=== PATIENT | male | born 1965 | race Caucasian/White ===

== ENCOUNTER → 2018-10-08 | Outpatient (CLI) | payer OTHER ==
[~2018-10-08] MED LIST: HYDROCODONE-AP1 EAC6 PO; IBUPROFEN 800800 M1 PO; KEFLEX500 MG PO; NORCO 5-325 TA1 EACH PO; ZOFRAN ODT4 MG PO
== END ==
LOC: M.ULTRA 11:29
DX: R22.1 Localized swelling, mass and lump, neck (principal)

== ENCOUNTER → 2018-10-18 | Outpatient (CLI) | payer OTHER | LOC: M.CT 09:04 | DX: R22.1 Localized swelling, mass and lump, neck (principal); R59.9 Enlarged lymph nodes, unspecified; Z88.8 Allergy status to other drugs, medicaments and biological substances ==

== ENCOUNTER → 2018-10-30 | Outpatient (CLI) | payer OTHER ==
[2018-10-30 12:21] LABS: ABSOLUTE BASOPHILS 0.1 thou/uL (0.0-0.2); ABSOLUTE EOSINOPHILS 0.2 thou/uL (0.0-0.7); ABSOLUTE LYMPHOCYTES 1.9 thou/uL (0.8-5.3); ABSOLUTE MONOCYTES 0.7 thou/uL (0.0-1.2); ABSOLUTE NEUTROPHILS 6.2 thou/uL (1.6-8.1); EOSINOPHILS 2.1 %; HEMATOCRIT 46.5 % (42.0-52.0); HEMOGLOBIN 15.8 gm/dL (14.0-18.0); LYMPHOCYTES 20.7 %; MCH 29.2 pg (26.0-34.0); MCHC 33.9 g/dL (28.0-37.0); MCV 86.3 fL (80.0-100.0); MONOCYTES 8.1 %; MPV 9.5 fl. (7.2-11.1); NUCLEATED RBCS 0 /100WBC; PLATELET COUNT* 244 thou/uL (150-400); POLYS 68.1 %; RBC 5.39 mil/uL (4.50-6.00); RDW-CV 14.2 % (10.5-14.5); WBC 9.1 thou/uL (4.0-11.0)
[2018-10-30 12:32] LABS: ALBUMIN 4.3 g/dL (3.4-5.0); CALCIUM 9.1 mg/dL (8.5-10.1); CREATININE 1.1 mg/dL (0.6-1.3); POTASSIUM 4.6 mmol/L (3.5-5.1); TOTAL BILIRUBIN 0.7 mg/dL (<0.1-1.0); TOTAL PROTEIN 8.1 g/dL (6.4-8.2)
--- NOTE | 2018-11-01 15:41 | HEMONC ---
[place] [address] HEMATOLOGY ONCOLOGY NOTE Name: PINKY MANUEL Room: [facility]#: [id number] Admission: 10/30/18 Attend Phys: Maria Luisa Parra MD Discharge: Date of : 65 Report #: [id number] THIS REPORT FOR: //name// CC: Jaun REARDON DO Yomaira Parra DATE OF SERVICE: 10/30/2018 DIAGNOSIS: Right cervical lymphadenopathy. SUBJECTIVE: This is a 52-year-old male who has been recently diagnosed with diabetes mellitus, hypertension, dyslipidemia, sleep apnea, who reported right-sided cervical lymphadenopathy. Ultrasound by primary care physician revealed enlarged lymph nodes irregular cystic masses suggesting multiple necrotic lymph nodes, measuring 5.[address] scan confirmed these findings. The patient reported no pain, nausea, fever, chills, night sweats; however, he lost 16 pounds which was intentional after his recent diagnosis of diabetes mellitus. The patient denies any sick contacts. REVIEW OF SYSTEMS: All systems reviewed. It was negative except the above. FAMILY HISTORY: Noncontributory. PAST MEDICAL HISTORY: Hypertension, diabetes mellitus and dyslipidemia. MEDICATIONS: Lisinopril 20 mg p.o. daily, lovastatin 10 mg p.o. daily, metformin 500 mg p.o. daily. ALLERGIES: No known allergies. PHYSICAL EXAMINATION: VITAL SIGNS: Blood pressure is 130/83, pulse 65, respirations 22, temperature is 97.0, saturations 96% on room air. GENERAL: The patient was sitting in chair, was not in acute distress. LUNGS: Clear to auscultations bilaterally. NECK: Palpable cervical lymphadenopathy as mentioned and imaging. Clear to auscultation bilaterally. ABDOMEN: Soft, nontender, nondistended. Bowel sounds positive. No hepatosplenomegaly. EXTREMITIES: No edema, no cyanosis, no clubbing. ASSESSMENT AND PLAN: The patient is a 52-year-old male who was evaluated because of multiple right-sided cervical lymphadenopathy confirmed by the ultrasound and the CT scan; however, there is [place] [address] HEMATOLOGY ONCOLOGY NOTE Name: PINKY MANUEL LC Room: [facility]#: [id number] Admission: 10/30/18 Attend Phys: Maria Luisa Parra MD Discharge: Date of : 65 Report #: [id number] with ultrasound which was done on 10/[address] scan. RECOMMENDATIONS: We will obtain excisional biopsy by ENT. In addition to that, we will arrange for PET/CT scan. Labs CBC, CMP and LDH today. <ELECTRONICALLY SIGNED> By: Maria Luisa Parra MD 11/01/18 1541 1149 [id number] Parra MD /kassy
== END ==
LOC: M.RTH 04:49
PROVIDERS: Internal Medicine
DX: R59.0 Localized enlarged lymph nodes (principal); I10 Essential (primary) hypertension; E11.9 Type 2 diabetes mellitus without complications; E78.5 Hyperlipidemia, unspecified; Z79.84 Long term (current) use of oral hypoglycemic drugs

== ENCOUNTER → 2018-11-22 | Outpatient (CLI) | payer OTHER ==
[~2018-11-22] MED LIST changes: +EZALLOR SPRINKL10 MG PO; +LISINOPRIL2.5 MG PO; +METFORMIN HCL500 M3 PO
--- NOTE | 2018-11-30 11:07 | PATH ---
[address] [address] PATHOLOGY RPT PROCEDURE Name: PINKY MANUEL Room: [facility] CECILE HunterChito#: [id number] Admission: 11/22/18 Date of : 65 Discharge: Report #: [id number] Path Case #: [id number] Note [facility] Accession Number: [id number] TESTS RESULT FLAG UNITS REF RANGE LAB Clinician Provided Cytology Information No. of containers..01 Other (Miscellaneous) Source: RT NECK DIAGNOSIS: RT NECK, IMAGE-GUIDED FINE NEEDLE ASPIRATION. MONOMORPHIC POPULATION OF LYMPHOCYTES CONSISTING PREDOMINANTLY OF SMALL MATURE AND SOME LARGER FORMS, CANNOT RULE OUT LYMPHOMA. (SEE COMMENT). COMMENT: Fresh sample submitted for flow cytometry studies showed CD10 positive monotypic (clonal) B-cell population with predominantly small to intermediate cell size, most typical of follicular lymphoma (flow cytometry report [id number]). Excision of the mass is recommended for more definitive classification, if clinically indicated. Discussed with Dr. Parra on early afternoon of 11/27/2018. (ANGELA:destini; 11/27/2018) Addendum: 02 Special studies report received from [facility], [address] [place] [address], [address], [place], [address], on case [id number], labeled with their number [id number], dated 11/24/2018. . Flow Cytometry: Hematologic Neoplasia Assessment . Clinical History Thyroid/nontoxic thyroid nodule . Indication for Study Evaluation for hematolymphoid neoplasia . Specimen Fine needle aspirate, right neck . Viability 85% (7AAD exclusion) . Interpretation Fine needle aspirate, right neck: CD10+ monotypic (clonal) B-cell population (45% of sample) with predominantly small to intermediate cell size (see comments) . Comments The flow cytometry results are most typical of follicular lymphoma. Correlation with available clinical, laboratory, and morphologic data is recommended. If needed, FISH testing (IGH/BCL2) [place] [address] PATHOLOGY RPT PROCEDURE Name: PINKY AMNUEL CL Room: [facility]#: [id number] Admission: 11/22/18 Date of : 65 Discharge: Report #: [id number] Path Case #: [id number] . Populations Analyzed Abnormal B-cells: 45% Scatter properties compatible with small to intermediate cell size, cells characterized as: CD45+, CD19+, CD20+, CD5-, CD10+, CD23-/+, FMC7-, CD30-, CD43-, CD38+/-, HLA DR+, sIg kappa+ Remaining 31% B-cells: 2.9%, polytypic/polyclonal sIg light Lymphocytes: chain pattern T-cells: no significant abnormalities of the markers tested CD4:CD8: 7.7 NK cells: 0.2% Granulocytes: 2% Present CD45 Negative 22% No significant reactivity with the markers tested Events/Debris: (may represent non-hematolymphoid cells, degenerated cells, debris, unlysed red blood cells, etc.) . Morphologic Evaluation A slide was reviewed for supervisor type disk quality control purposes only. . Specimen Description Cell Yield: 0.43x10 and 6 . Reagent(s) Used CD2, CD3, CD4, CD5, CD7, CD8, CD10, CD11b, CD19, CD20, CD23, CD30, CD38, CD43, CD45, CD56, CD57, FMC-7, HLA-DR, kappa, lambda . at [facility]. Soheila Escamilla MD Pathologist . . Intended Use Flow cytometry is optimally used to immunophenotypically characterize abnormal populations when they are detected. Negative flow cytometry results do not exclude lymphoma or neoplasia. Possible false negative flow cytometry results may occur in, but are not limited to, the following: neoplastic cells in Hodgkin lymphoma are not typically adequately represented by routine clinical flow cytometry; neoplastic cells may be lost or inadequately represented due to degeneration, sample processing, sampling artifact, or patchy involvement; plasma cells are typically underrepresented by flow cytometry; immature cells/blasts may be underrepresented due to hemodilution; myeloproliferative disorders and low grade myelodysplasia may not have immunophenotypic abnormalities or increased blasts. Correlation with all available clinical, laboratory, and morphologic data is always necessary to assess for the possibility of false negative flow cytometry results and to [place] [address] PATHOLOGY RPT PROCEDURE Name: PINKY MANUEL Room: [facility] ANIBAL Tovar#: [id number] Admission: 11/22/18 Date of : 65 Discharge: Report #: [id number] Path Case #: [id number] Each marker in this analysis was used to assess for potential antigenic abnormalities or to evaluate detected abnormalities. . Disclaimer(s) This test was performed at [facility]. at [address] [facility] [address], [place], [address] - Core Drill Operator: Shlomo Solorio MD. [employer] is a business unit of [facility] a wholly-owned subsidiary of [employer]. . Any image or images that accompany this report are customer solutions representative images only and should not be used to render a diagnosis. . This test was developed and its performance characteristics determined by [employer]. It has not been cleared or approved by the Food and Drug Administration (FDA). The FDA has determined that such clearance or approval is not necessary. . For inquiries, the physician may contact Lab: [phone] . A complete copy of the report is on file. . Professional services performed by [employer]. at [address], [place] [address]. Technical services performed by [employer]. at [address], [place] [address]. . (ANGELA:am 11/26/2018) . [place]/11/27/2018 Addendum Electronically Signed by Miguel Jeffries MD, Pathologist Signed out by: 02 Miguel Jeffries MD, Pathologist NPI- [id number] Performed by: 01 Yomaira Novak, Wait[employer] ([facility]) Gross description: 17 ML, COLORLESS, CLEAR /QLM 11/27/2018 1142 Local FLAG LEGEND: L-Low Normal,H-High Normal,LL-Alert Low,HH-Alert High <-Panic Low,>-Panic High,A-Abnormal,AA-Critical Abnormal Performed at: 01 [facility] [address] [place] [address] PATHOLOGY RPT PROCEDURE Name: PINKY MANUEL [facility] [id number] Admission: 11/22/18 Date of : 65 Discharge: Report #: [id number] Path Case #: [id number] [address] [facility] [address] [place] [address] Gurwinder English MD, [address] [place] [address] [address] [place] [address] Miguel Jeffries MD, Specimen Comment: A courtesy copy of this report has been sent to Specimen Comment: [phone]. Specimen Comment: Report sent to Performed at: 01 [facility] [address] [facility] [address], [place], [place] [id number] MD Gurwinder English MD Phone: [phone]
== END | disposition home or self-care (01) ==
LOC: M.ULTRA 08:06
DX: R59.0 Localized enlarged lymph nodes (principal); D72.89 Other specified disorders of white blood cells; Z79.899 Other long term (current) drug therapy; Z88.8 Allergy status to other drugs, medicaments and biological substances; Z87.442 Personal history of urinary calculi

== ENCOUNTER → 2018-11-26 | Outpatient (CLI) | payer OTHER | LOC: M.CT 11-21 11:00 | DX: R59.0 Localized enlarged lymph nodes (principal); N28.1 Cyst of kidney, acquired ==

== ENCOUNTER → 2018-11-27 | Outpatient (CLI) | payer OTHER ==
--- NOTE | 2018-11-30 14:46 | HEMONC ---
[address] [address] HEMATOLOGY ONCOLOGY NOTE Name: KALEBPINKY LC Room: [facility].R.#: [id number] Admission: 11/27/18 Attend Phys: Maria Luisa Parra MD Discharge: Date of : 65 Report #: [id number] THIS REPORT FOR: //name// CC: Pancho Rodriguez DO Maria Luisa Parra DATE OF SERVICE: 11/27/2018 CLINIC NOTE DIAGNOSIS: CD10 monotype B-cell population, consistent with a follicular lymphoma. SUBJECTIVE: The patient presented today after followup. Initially, I requested an excisional biopsy. However, FNA was obtained, and FNA showed CD10 monotype clonal B-cell population. Flow cytometry was more consistent with a follicular lymphoma. A PET/CT scan was requested; however, the patient was not able to afford the copay. A CT scan neck, chest, abdomen and pelvis confirmed persistent right-sided cervical adenopathy, which was multiple, innumerous right cervical lymphadenopathy posterior to the right sternomastoid muscle within the anterolateral right neck extending into the right supraclavicular region; no change from the prior examination. CT chest, abdomen and pelvis was negative for enlarged lymphadenopathy. I discussed these findings with the patient. However, we will need excisional biopsy, #1, to determine the grade of this follicular lymphoma. The patient continues to have no fever, chills or night sweats; however, he reported 16-pound weight loss previously. REVIEW OF SYSTEMS: All systems reviewed, was negative except the above. PAST MEDICAL, SOCIAL AND FAMILY HISTORY: As mentioned above. PHYSICAL EXAMINATION: VITAL SIGNS: Blood pressure is 131/88, pulse is 58, respirations 18, temperature is 96.5, saturations 98% on room air. GENERAL: The patient was sitting in chair, was not in acute distress. NECK: Showed persistent lymphadenopathy on the right cervical area. LABORATORIES: On 10/30/2018, WBC 9.1, hemoglobin 15.8, platelets 244. Creatinine is 1.1, bilirubin 0.7, AST 25, ALT 51. LDH is 127. ASSESSMENT AND PLAN: A 52-year-old male, who has been diagnosed with persistent multiple cervical lymphadenopathy. No evidence of enlarged lymphadenopathy in the chest or the abdomen. FNA showed findings consistent with [place] [address] HEMATOLOGY ONCOLOGY NOTE Name: PINKY MANUEL Room: [facility]#: [id number] Admission: 11/27/18 Attend Phys: Maria Luisa Parra MD Discharge: Date of : 65 Report #: [id number] RECOMMENDATIONS: 1. Refer back to Dr. Hunt for excisional biopsy to confirm the diagnosis, determine the grade of the follicular lymphoma. 2. Request a PET/CT scan at [facility] for proper staging. I discussed with the patient that if this is a low-grade lymphoma, most likely he had a stage 2, definitive radiation therapy will be indicated; however, if this is a high grade, options will be systemic chemotherapy. We will follow up based on his final pathology. <ELECTRONICALLY SIGNED> By: Maria Luisa Parra MD 11/30/18 1446 1002 [id number] Parra MD /nt
== END ==
LOC: M.RTH 11-13 11:30
DX: Z08 Encounter for follow-up examination after completed treatment for malignant neoplasm (principal)

== ENCOUNTER → 2019-01-02 | Outpatient (CLI) | payer OTHER ==
[~2019-01-02] VITALS: Ht 180.3 cm; Wt 118.8 kg
[2019-01-02 08:19] VITALS: BP 135/90
[2019-01-02 08:43] LABS: HEMATOCRIT 46.6 % (42.0-52.0); HEMOGLOBIN 16.2 gm/dL (14.0-18.0); MCH 29.7 pg (26.0-34.0); MCHC 34.7 g/dL (28.0-37.0); MCV 85.6 fL (80.0-100.0); MPV 9.7 fl. (7.2-11.1); RBC 5.44 mil/uL (4.50-6.00); RDW-CV 14.2 % (10.5-14.5); WBC 8.5 thou/uL (4.0-11.0)
[2019-01-02 08:50] LABS: CALCIUM 9.1 mg/dL (8.5-10.1); POTASSIUM 4.3 mmol/L (3.5-5.1)
[2019-01-02 08:51] LABS: APTT 25.9 Seconds (25.0-31.3)
[2019-01-02 08:56] LABS: TOTAL BILIRUBIN 0.5 mg/dL (<0.1-1.0); TOTAL PROTEIN 7.8 g/dL (6.4-8.2)
== END | disposition home or self-care (01) ==
LOC: M.INT 07:36
PROVIDERS: Radiology Diagnostic Radiology
DX: Z45.2 Encounter for adjustment and management of vascular access device (principal); C85.91 Non-Hodgkin lymphoma, unspecified, lymph nodes of head, face, and neck; R59.0 Localized enlarged lymph nodes; I10 Essential (primary) hypertension; E78.00 Pure hypercholesterolemia, unspecified; E11.9 Type 2 diabetes mellitus without complications; F17.210 Nicotine dependence, cigarettes, uncomplicated; Z98.890 Other specified postprocedural states; Z83.3 Family history of diabetes mellitus; Z82.49 Family history of ischemic heart disease and other diseases of the circulatory system; Z79.899 Other long term (current) drug therapy; Z88.8 Allergy status to other drugs, medicaments and biological substances; Z87.442 Personal history of urinary calculi; Z79.01 Long term (current) use of anticoagulants